=== PATIENT | female | born 1960 | race Caucasian/White ===

== ENCOUNTER 2024-02-15 07:30 | Outpatient (CLI) | payer BC, SELFPAY ==
[2024-02-15 08:53] LABS: Basophils Absolute Auto 0.1 K/mm3 (0.0-0.1); Eosinophils Absolute Auto 0.1 K/mm3 (0-0.3); Eosinophils Percent Auto 1.4 % (0-4.4); Hematocrit 44.8 % (37.0-47.0); Hemoglobin 14.5 g/dL (12.0-15.0); Immature Granulocyte Absolute 0.03 K/mm3 (0.00-0.031); Immature Granulocyte Percent A 0.4 % (0-0.5); Lymphocytes Absolute Auto 1.58 K/mm3 (0.9-3.2); Lymphocytes Percent Auto 19.6 % (18.3-44.2); Mean Corpuscular HGB Conc 32.4 g/dl (32-36); Mean Corpuscular Hemoglobin 29.8 pg (26-34); Mean Platelet Volume 10.4 fl (7.4-10.4); Monocytes Absolute Auto 0.6 K/mm3 (0.1-0.6); Monocytes Percent Auto 7.7 % (2.6-8.5); Neutrophils Absolute Auto 5.7 K/mm3 (1.3-6.7); Neutrophils Percent Auto 69.9 % (45.5-73.1); Platelet Count Result 235 k/mm3 (150-375); Red Blood Count 4.87 M/mm3 (4.2-5.4); Red Cell Distribution Width 14.1 % (11.5-14.5); White Blood Count 8.1 K/mm3 (4.5-10.0)
[2024-02-15 09:00] LABS: Alanine Aminotransferase 16 U/L (6-35); Albumin Level 4.7 g/dL (3.5-5.1); Alkaline Phosphatase 54 U/L (38-126); Anion Gap 3 mmol/L (4-12); Aspartate Amino Transferase 26 U/L (14-36); Bilirubin,Total 0.4 mg/dL (0.2-1.3); Blood Urea Nitrogen 13 mg/dL (7-17); Calcium 10.3 mg/dL (8.4-10.2); Carbon Dioxide 33 mmol/L (22-30); Chloride 102 mmol/L (98-107); Estimated Glomerular Filt Rate > 60; Glucose 103 mg/dL (65-110); Potassium 4.9 mmol/L (3.4-5.0); Sodium 138 mmol/L (137-145)
[2024-02-15 09:19] LABS: INR 0.9; Prothrombin Time 12.5 Seconds (11.1-14.7)
== END 2024-02-15 07:31 | disposition home or self-care (01) ==
PROVIDERS: PCP Physician Assistant; Visit Provider Urology
DX: Z01.818 Encounter for other preprocedural examination (principal); N81.4 Uterovaginal prolapse, unspecified
CPT/HCPCS: 36415; 80053; 85025; 85610; 85730; 86850; 86900; 86901

== ENCOUNTER 2024-02-28 00:10 | Day surgery (SDC) | payer BC, SELFPAY ==
[2024-02-15 07:37] VITALS: BP 110/74; PULSE 70; RESP 16; TEMP 37.2; O2SAT 96; BMI 20.9
--- NOTE | 2024-02-15 07:37 | PC.NURSE ---
PRE-OP INSTRUCTIONS, PLEASE READ CAREFULLY Report to the Outpatient Waiting Room, entrance under the green pavilion located off [facility], at time _0600_ on date _02/28/24_. Planned Procedure Time: _0730_. PACK A SMALL OVERNIGHT BAG AND LEAVE IN THE CAR Time changes happen often and if your time is changed the preop area will call you the afternoon before. - You and your visitor will be asked to self-screen and do not enter if you have any COVID symptoms. - A mask is optional within the hospital at this time. -VISITING HOURS 8AM-8PM Patients may have clear liquids (water, carbonated beverages, clear teas, apple juice) until 3 hours prior to surgery with a maximum of 20 ounces. - No food from midnight until time of surgery Take the following medications with a SIP of water the morning of surgery: __NONE___ DO NOT STOP ANY OF YOUR OTHER PRESCRIPTION MEDICATIONS PRIOR TO SURGERY ?EXCEPT THE FOLLOWING Medications to discontinue per physician ____N/A____, Date to take last dose Please no make-up, nail qatari, hairspray, perfume, deodorant, or body powder the day of surgery. No jewelry (including any body piercings) or valuables the day of surgery, leave them at home. Please take a shower or bath the night before, or the morning of, surgery with an antibacterial soap. Wear comfortable, loose fitting clothing. - Jewelry must be removed prior to entering the operating room. Rings and piercings that are not removed may be cut off. - The hospital will not accept responsibility for valuables. - Please leave all valuables, including medications, at home the day of surgery. If you are going home after surgery, a licensed test car driver must drive you home. - NO public transportation without another adult if you receive anesthesia. - We recommend that an adult stay with you for 24 hours following discharge. - We also recommend that you do not drive, make important decision, drink alcoholic beverages, or take any drugs that were not prescribed by your health care provider for at least 24 hours after your discharge time. Follow any additional instructions given to you from your surgeon. If you or anyone in your household have experienced Covid symptoms in the past week, please notify your surgeon or the nurse liaison at the phone number below for possible testing. Instructions given to _PATIENT_and asked if any additional questions and then verbalized understanding. Patient advised to call surgeon office or pre surgery nurse liaison [phone] if any additional questions.
--- NOTE | 2024-02-22 07:22 | PM.IMHP ---
H&P: HPI History of Present Illness Date/Time: 02/22/24 07:22 Chief Complaint: Uterine prolapse Narrative: 63-year-old female with uterine prolapse admitted for robotic supracervical hysterectomy and bilateral salpingo-oophorectomy as well as sacral colpopexy Dr. Bello. She has pain discomfort and a bulge. She also has urinary incontinence. Risks and benefits of the procedure reviewed including not exclusive of , aspiration pneumonia, bleeding, transfusion, perforation injury to bowel, bladder, ureters, or other internal organs with need for open laparotomy. She received the [employer] handout entitled hysterectomy as well as the de Brent handout. She was urged to watch her procedure on the computer. She had all questions answered missed proceed [facility] Social History Social History Smoking status: Never smoker Second hand tobacco smoke exposure: No Alcohol intake: current Alcohol use details: MAYBE 4/MONTH Substance use: current Substance use type: marijuana Other substance usage details: RECREATIONAL Last use: 02/14/24 Living arrangements: with family Additional living arrangements comments: LIVES WITH SPOUSE - [place] Spiritual care concerns: No Meds Home Medications and Allergies Home Medications Medication Instructions Recorded Confirmed Type No Home Medications 02/15/24 02/15/24 History Allergies Allergy/AdvReac Type Severity Reaction Status Date / Time Penicillins AdvReac Hives- A Verified 02/15/24 07:55 CHILD Exam Const: General: cooperative, healthy appearing, comfortable and average body habitus Orientation/consciousness: oriented to person, oriented to place and oriented to time HENMT: Head: normal to inspection Resp: Effort & Inspection: normal respiratory effort Cardio: Rate: regular rate Rhythm: regular rhythm Heart sounds: S1 normal heart sound present and S2 normal heart sound present GI: Inspection: normal to inspection : External Female Exam: normal external appearance (Uterine prolapse noted) Speculum Exam - Vagina: normal appearance of the vagina Speculum Exam - Cervix: normal appearance of the cervix Bimanual exam- vagina & uterus: non-tender Bimanual Exam- Adnexa, other: normal adnexae Assessment and Plan Assessment and plan (1) Uterine prolapse: Code(s): N81.4 - Uterovaginal prolapse, unspecified Status: Acute Plan Will proceed with supracervical hysterectomy and bilateral salpingo-oophorectomy via robot. Dr. Bello will proceed with sacral colpopexy and possible sling etc. as needed
--- NOTE | 2024-02-27 21:05 | PM.IMHP ---
H&P: HPI History of Present Illness Date/Time: 02/27/24 21:05 Chief Complaint: POP Narrative: 63 yo with POP and occult ALYSA Review of Systems Review of Systems: All systems reviewed & are unremarkable except as noted in HPI and below PMFSH Social History Social History Smoking status: Never smoker Second hand tobacco smoke exposure: No Alcohol intake: current Alcohol use details: MAYBE 4/MONTH Substance use: current Substance use type: marijuana Other substance usage details: RECREATIONAL Last use: 02/14/24 Living arrangements: with family Additional living arrangements comments: LIVES WITH SPOUSE - [place] Spiritual care concerns: No Meds Home Medications and Allergies Home Medications Medication Instructions Recorded Confirmed Type No Home Medications 02/15/24 02/15/24 History Allergies Allergy/AdvReac Type Severity Reaction Status Date / Time Penicillins AdvReac Hives- A Verified 02/15/24 07:55 CHILD Exam Narrative: NAD normal breathing + urethral mobility cystocele with loss of apical support at 0 Assessment and Plan Assessment and plan (1) Uterine prolapse: Code(s): N81.4 - Uterovaginal prolapse, unspecified Status: Acute (2) ALYSA (stress urinary incontinence, female): Code(s): N39.3 - Stress incontinence (female) (male) Status: Acute Plan Robotic Sacdral colpopexy and sling. Risks, benefits, and alternative ourlined in office chart
[2024-02-28] VITALS (12 sets, daily range): BP systolic 98–148; BP diastolic 62–81; PULSE 60–98; RESP 12–22; TEMP 36.1–36.3; O2SAT 96–100; BMI 21.0
[2024-02-28] MEDS: LACTATED RINGERS 1,000 ML 30 ML IV CONT ×2 (06:20→10:06)
--- NOTE | 2024-02-28 06:27 | WPDHPUPDATE1 ---
History and Physical Update Update Date/Time: 02/28/24 06:27 History and Physical has been reviewed, including an updated exam of the patient. There are NO changes in the patient's condition. Risks, benefits, and alternatives have been discussed and questions answered. Patient agrees to proceed with procedure.
[2024-02-28] MEDS: KETOROLAC 15 MG/ML VIAL (*BKC) IV PUSH (06:33)
[2024-02-28] MEDS: SCOPOLAMINE 1 MG PATCH 1 PATCH TRANSDERM (06:33)
[2024-02-28] MEDS: ACETAMINOPHEN 500 MG TABLET 1000 MG PO (06:33)
--- NOTE | 2024-02-28 07:13 | WPDANESEPPF ---
Anes - Initial Pre Proc Eval Procedure: Operation Date: 02/28/24 07:30 Proposed Procedures p Robotic Sacrocolpopexy, - Anurag Bello MD s Urethral Sling, - Anurag Bello MD s Robotic Supracervical Hysterectomy with Bilateral Salpingo Oophorectomy - Harmeet Mcbride MD Date/Time: 02/28/24 07:13 Surgeon: Anurag Bello MD Pre Op Diagnosis: uterine prolapse Patient Data Age: 63 Gender: F Height: 1.6 m Weight: 53.6 kg Last Vital Signs Temp 37.2 C 02/15/24 07:37 Pulse 70 02/15/24 07:37 Resp 16 02/15/24 07:37 BP 110/74 02/15/24 07:37 Pulse Ox 96 02/15/24 07:37 O2 Del Method Room Air 02/15/24 07:37 Allergies Allergy/AdvReac Type Severity Reaction Status Date / Time Penicillins AdvReac Hives- A Verified 02/28/24 06:30 CHILD Home Medications Medication Instructions Recorded Confirmed Type No Home Medications 02/15/24 02/15/24 History Patient hx anesthesia problems: post op nausea/vomiting Family hx anesthesia problems: none Results Review: All pre-operative results and documents have been reviewed as part of the pre-operative evaluation. [facility] Social History Social History Smoking status: Never smoker Second hand tobacco smoke exposure: No Alcohol intake: current Alcohol use details: MAYBE 4/MONTH Substance use: current Substance use type: marijuana Other substance usage details: RECREATIONAL Last use: 02/14/24 Living arrangements: with family Additional living arrangements comments: LIVES WITH SPOUSE - [place] Spiritual care concerns: No Anes - Eval Final PreProcedure Day of Procedure 02/28/24 07:13 Patient weight: normal Heart: regular rate and rhythm Lungs: clear to auscultation Airway: Mallampati scale class II Neurological: alert and oriented Last oral intake: >/= 8 hours ASA classification: II Emergent: no Anesthetic plan: proceed Anesthesia type and monitoring: general ETT and standard monitoring Results Review: All pre-operative results and documents have been reviewed as part of the pre-operative evaluation. Informed Consent: The patient's anesthetic plan and its attendant risks and benefits were discussed with the patient/family/POA. Questions were solicited and answers provided to the satisfaction of the patient/family/POA.
--- NOTE | 2024-02-28 07:16 | WPDHPUPDATE1 ---
History and Physical Update Update Date/Time: 02/28/24 07:16 History and Physical has been reviewed, including an updated exam of the patient. There are NO changes in the patient's condition. Risks, benefits, and alternatives have been discussed and questions answered. Patient agrees to proceed with procedure.
[2024-02-28] MEDS: ceFAZolin 2 GM/D5W 50 ML 2 GM/50 ML BAG IVPB (07:43)
[2024-02-28] MEDS: metroNIDAZOLE 500 MG/ISO 100ML 500 MG/100 ML BAG 100 MG IVPB (07:48)
[2024-02-28] MEDS: BUPIVACAINE/EPINEPHRINE 0.5% 10 ML VIAL 40 ML INFILTRATE (08:01)
--- NOTE | 2024-02-28 08:23 | W.PM.PROC2 ---
Procedure Note - Detailed Date of Procedure 02/28/24 Pre-op Diagnosis uterine prolapse Post-op Diagnosis Same Procedure Performed Robotic supracervical hysterectomy and bilateral salpingo-oophorectomy Surgeon Harmeet Mcbride MD Anesthesia General Indications 63-year-old female with uterine prolapse Findings uterine prolapse with normal-appearing ovaries tubes of to be status post tubal ligation Description of Procedure patient was prepped draped in normal sterile fashion placed in the dorsal lithotomy position. Under excellent general trach anesthesia weighted speculum placed post removed from vagina. Anterior lip of the cervix grasped with single-tooth tenaculum. The Bates's cannula inserted the cervix attached to the single-tooth to be used for uterine manipulation. The bladder was emptied with a 16 Greenlandic catheter left in place. The weighted speculum was removed the gloves were changed. Dr. Isaacs proceeded to dock the robot please see his operative report for full details. Attention was turned to the console the left round ligament was grasped, burned, cut. Anterior bladder flap was formed by sharply dissecting the peritoneum and bringing this to the opposite round ligament which was clamped, burned, cut. Next the infundibulopelvic structure left was skeletonized to remove the ovary and tube clamped, burned, brought to the level of previously cut round ligament. In similar fashion on the right the infundibulopelvic structure was skeletonized clamping burning cutting and bringing this level of previously cut round ligament. The left cardinal broad ligaments were skeletonized clamping burning cutting hugging the cervix and uterus until the uterine vessels could be seen on left these were individually clamped, burned, cut. In similar fashion right the cardinal broad ligaments were serially skeletonized clamping burning cutting this to uterine vessels. These were individually clamped, burned, cut. A supracervical incision made in this the ovary portions of tube and uterus were placed in an Endo-Catch. Blood loss was 5cc of this point. Dr. Isaacs took over from there please refer to his operative report. The patient was stable at this point Estimated Blood Loss 5 Drains No Packing No Pathology Yes Complications No immediate complications Condition Stable Disposition No change
--- NOTE | 2024-02-28 10:04 | W.PM.PROC2 ---
Procedure Note - Detailed Date of Procedure 02/28/24 Pre-op Diagnosis uterine prolapse Stress incontinence Post-op Diagnosis Same Procedure Performed Robotic assisted laparoscopic sacral colpopexy Urethral sling Cystoscopy Surgeon Anurag Bello MD Anesthesia General Indications a woman with uterine prolapse as well as stress incontinence. She desires surgical correction. She is here for the above. She understands risks of bleeding, infection, diskitis, damage to surrounding organs, bowel injury, bowel obstruction, mesh related complications including exposure and extrusion, postoperative voiding dysfunction including incontinence and retention, need for ancillary procedures, dyspareunia, recurrence of prolapse, and other perioperative intraoperative postoperative complications. She agrees to proceed. Findings See below Description of Procedure She was correctly identified. Informed consent obtained. She from the operating room. She was given general anesthesia. She was given appropriate perioperative antibiotics. She was placed a low lithotomy position. Pressure points were padded. A time-out performed. I marked out the skin 3 fingerbreadths cephalad to the umbilicus. I anesthetized the skin. I incised the skin. I dissected down to the fascia. I grasped the fascia with Dennys clamps. I entered the fascia sharply in a Aleman type technique. I placed sutures for later fascial closure. I placed a midline trocar. I examined the abdomen. There is no sign of any injury. Under direct vision I placed 2 additional trocars in the right upper quadrant and 2 additional trocars the left upper quadrant. She was placed in steep Trendelenburg. The robot was docked. Her senior center director completed their portion of the procedure. Please see that operative report for details. I then sat at the console. The Sizer in the vagina created plane on the anterior and posterior vaginal wall. I took great care not to injure the vagina, bladder, or rectum. I introduced the mesh into the abdomen. I sewed the anterior leaflet of mesh on the anterior vaginal wall. I sewed the posterior leaflet of mesh on the posterior vaginal wall. This was done with several sutures of 2 0 [place]-Jori. I reflected the colon laterally. I opened the posterior peritoneum over the sacral promontory. I carried this into the cul-de-sac. I freed up the edges for later retroperitonealization. I located the anterior longitudinal ligament the sacrum. I cleaned off all fatty tissues. I then tensioned my mesh appropriately. I did a vaginal exam the bedside. I assured prolapse reduction without undue tension. I then sewed the proximal leaflet of mesh onto the anterior longitudinal ligament of the sacrum with several sutures of 2 0 Brooklyn-Jori. I then used a 2 0 Monocryl to completely and meticulously retroperitonealized all mesh. I allowed the colon to go back to its normal anatomic location. There is no sign of any impingement. The specimen was then removed. All ports removed. Fascia was tied down. Skin was closed with Monocryl and surgical glue. She was repositioned and prepped for urethral sling. I marked out the inner thigh incisions. I anesthetized the skin and made the incisions. I then anesthetized the anterior vaginal wall at the mid urethra. I made a 1 cm incision. I dissected out laterally taking great care not to injure the refilled vaginal wall. I passed the helical trocars. I did this 1st on the left and then on the right. This was done from the thigh incision towards the vaginal incision. Sling was connected to the trocars and brought out the thigh incision. I tensioned the sling appropriately. I cut and the plastic sheaths. I closed the incision with 2 0 Vicryl. I then performed cystoscopy. There was no tumors or surgical artifact. Both ureters were seen to excrete clear yellow urine. There is no surgical artifact in the bladder or urethra. I cut the excess
[2024-02-28] MEDS: oxyCODONE HCL (*CRX) 5 MG TAB IR PO (13:15)
--- NOTE | 2024-02-29 08:05 | WPDANESPN ---
Anes - Prog Note Post-Op Date/Time: 02/29/24 08:05 Cardiovascular status: normal Respiratory status: normal Airway patency: baseline Mental status: baseline Post-Op hydration status: normal Vital Signs: Last Vital Signs Temp 36.3 C L 02/28/24 10:06 Pulse 60 02/28/24 13:30 Resp 14 02/28/24 13:30 BP 98/66 L 02/28/24 13:30 Pulse Ox 97 02/28/24 11:45 O2 Del Method Room Air 02/28/24 11:45 O2 Flow Rate 8 02/28/24 10:30 Pain Score (VAS): 3 Post-procedural complaints: none Patient Feedback: Patient satisfied with anesthetic care.
== END 2024-02-28 14:10 | disposition home or self-care (01) ==
PROVIDERS: Obstetrics & Gynecology; PCP Physician Assistant; Visit Provider Urology
PROC: (CPT 57425; principal; 2024-02-28 07:30)
PROC: (CPT 57425; 2024-02-28 07:30)
PROC: (CPT 58542; 2024-02-28 07:30)
DX: N81.4 Uterovaginal prolapse, unspecified (principal); N39.3 Stress incontinence (female) (male); N84.0 Polyp of corpus uteri; N83.8 Other noninflammatory disorders of ovary, fallopian tube and broad ligament; F12.90 Cannabis use, unspecified, uncomplicated
CPT/HCPCS: 58542; 57425; 57288; S2900 ×2; 88307; A9270; C1771; C1781; J0690; J1100; J1170; J1836; J1885; J2250; J2371; J2405; J2704; J3010; J7030; J7120